=== PATIENT | male | born 1980 | race Hispanic/Latino ===

== ENCOUNTER 2023-10-02 09:33 | Emergency (ER) | payer SELFPAY ==
[2023-10-02 09:58] LABS: Absolute Lymphocytes (CBC) 2.4 K/uL (0.7-4.9); Hematocrit 44.3 % (39.6-49.0); Lymphocytes % 29.9 % (15.3-44.8); MCV 90.8 fL (80-100); MPV 7.9 fL (7.6-11.3); Platelets 233 thou/uL (152-406); RBC Red Blood Cell Count 4.87 M/uL (4.33-5.43)
[2023-10-02 10:15] LABS: Albumin 3.3 g/dL (3.4-5.0); Bilirubin Total 0.2 mg/dL (0.2-1.0); Potassium 3.8 mEq/L (3.5-5.1); Protein, Total 7.1 g/dL (6.4-8.2)
--- NOTE | 2023-10-02 11:06 | RAD REPORT ---
EXAM DESCRIPTION: CTAbdomen Pelvis W Contrast - 10/02/2023 10:56 am CLINICAL HISTORY: right side;Abd pain COMPARISON: No comparisons TECHNIQUE: CT of the abdomen and pelvis was performed. All CT scans are performed using dose optimization technique as appropriate and may include automated exposure control or mA/KV adjustment according to patient size. FINDINGS: Lower chest: No acute abnormality. Liver: Hepatomegaly with steatosis . Biliary: No biliary ductal dilatation. Stomach: No significant focal abnormality. Duodenum: No significant focal abnormality. Pancreas: No significant abnormality. Spleen: No significant abnormality. Adrenal: No suspicious lesions. Kidney/ureter: No hydronephrosis. No renal calculi. Retroperitoneum: No retroperitoneal adenopathy. Vascular: No aneurysm. Bowel: No significant focal abnormality. Normal appendix . Peritoneum: No ascites or free air. Small fat containing inguinal hernias, right greater than left. Bladder: Grossly unremarkable. Reproductive: No adnexal masses. Bones: No acute fracture. Other: n/a IMPRESSION: No acute intra-abdominal or pelvic finding. Normal appendix. No urinary tract calculi.
--- NOTE | 2023-10-02 11:08 | EDPHYS ---
Physician Documentation [facility] Name: Simone Rivera Age: 43 yrs Sex: Male : 1980 Arrival Date: 10/02/2023 Time: 09:33 Bed 16 Private MD: ED Physician Juan Cuellar HPI: 10/02 09:46 This 43 yrs old Male presents to ER via Ambulatory with complaints of rn Abdominal Pain. 09:46 The patient presents with abdominal pain right lower quadrant. Onset: The rn symptoms/episode began/occurred this morning. The symptoms do not radiate. Associated signs and symptoms: Pertinent negatives: nausea and vomiting, blood in stools, chest pain, constipation, diarrhea, dysuria, fever, hematuria, shortness of breath, testicular pain, vomiting, vomiting blood. The symptoms are described as crampy. Modifying factors: The symptoms are alleviated by remaining still, the symptoms are aggravated by movement. Severity of pain: At its worst the pain was mild in the emergency department the pain is unchanged. The patient has not experienced similar symptoms in the past. Patient reports earlier today sneezed followed by a cough with immediate right-sided abdominal wall pain. Does not take blood thinners. No fever/vomiting/diarrhea. No blood in stools. No history of kidney stones. Worse with movement and twisting of the abdominal wall.. Historical: - Allergies: 09:46 No Known Allergies; iw - Home Meds: 09:46 None [Active]; iw - PMHx: 09:46 None; iw - Immunization history:: Client reports having NOT received the Covid vaccine. - Social history:: Smoking status: Patient reports the use of cigarette tobacco products. - Family history:: not pertinent. - Hospitalizations: : No recent hospitalization is reported. ROS: 09:46 Constitutional: Negative for fever, chills, and weight loss, Cardiovascular: Negative rn for chest pain, palpitations, and edema, Respiratory: Negative for shortness of breath, cough, wheezing, and pleuritic chest pain, Abdomen/GI: Positive for abdominal pain Back: Negative for injury and pain, : Negative for injury, bleeding, discharge, and swelling, MS/Extremity: Negative for injury and deformity, Skin: Negative for injury, rash, and discoloration, Neuro: Negative for headache, weakness, numbness, tingling, and seizure, Exam: 09:46 Constitutional: This is a well developed, well nourished patient who is awake, alert, rn and in no acute distress. Ambulatory to room without difficulty or assistance Head/Face: Normocephalic, atraumatic. Cardiovascular: Tachycardic, regular. No pulse deficits. Respiratory: No increased work of breathing, no retractions or nasal flaring. Abdomen/GI: Soft, mild right lower quadrant abdominal wall tenderness. No peritoneal signs or masses. No tenderness or rebound elsewhere to the abdomen Skin: Warm, dry MS/ Extremity: Pulses equal, no cyanosis. Neuro: Awake and alert, GCS 15 Vital Signs: 09:44 Pulse 95; Resp 16; Temp 98.1; Pulse Ox 98% on R/A; iw 09:46 BP 142 / 86; Pulse 102; Resp 18; Temp 98.1; Pulse Ox 100% on R/A; Weight 104.33 kg; iw Height 5 ft. 9 in. ; Pain 8/10; 09:46 Body Mass Index 33.96 (104.33 kg, 175.26 cm) iw 09:46 Pain Scale: Adult iw MDM: 09:38 Patient medically screened. rn 11:07 Differential diagnosis: appendicitis, non-specific abd pain, Abdominal wall strain, rn hernia. Data reviewed: vital signs, nurses notes, lab test result(s), radiologic studies, CT scan, and as a result, I will discharge patient. Counseling: I had a detailed discussion with the patient and/or guardian regarding the historical points, exam findings, and any diagnostic results supporting the discharge/admit diagnosis, lab results, radiology results, the need for outpatient follow up, to return to the emergency department if symptoms worsen or persist or if there are any questions or concerns that arise at home. Special discussion: Based on the patient's Hx, exam, and Dx evaluation, there is no indication for emergent surgery or inpatient Tx. It is understood by the patient/guardian that if the Sx's persist or worsen they need to return immediately for re-evaluation. I discussed with the patient/guardian in detail that at this point there is no indication for admission to the hospital. It is understood, however, that if the symptoms persist or worsen the patient needs to return immediately for re-evaluation. ED course: No acute findings and CT of the abdomen. Most likely abdominal wall strain following sneeze and cough. Will DC home with return precautions. I have personally reviewed all of the results, including but not limited to blood tests and imaging deemed necessary to safely discharge this patient at this time. All results given to and printed out for patient. I personally went over all the results with the patient and answered all questions. Patient will follow-up with PCP and or specialist as discussed. Return precautions given and understood.. 10/02 09:45 Order name: CBC with Diff; Complete Time: 10: rn 10/02 09:45 Order name: CMP; Complete Time: : rn 10/02 09:45 Order name: Lipase; Complete Time: : rn 10/02 09:45 Order name: CT Abd/Pelvis - IV Contrast Only; Complete Time: : rn 10/02 09:45 Order name: IV Saline Lock; Complete Time: 09:54 rn 10/02 09:45 Order name: Labs collected and sent; Complete Time: 09:54 rn Administered Medications: No medications were administered Disposition Summary: 10/02/23 11:08 Discharge Ordered Notes: Location: Home rn Problem: new rn Symptoms: have improved rn Condition: Stable rn Diagnosis - Strain of muscle, fascia and tendon of abdomen rn Followup: rn - With: Private Physician - When: As needed - Reason: Recheck today's complaints, Re-evaluation by your physician Discharge Instructions: - Discharge Summary Sheet rn - Abdominal Pain, Adult rn - Muscle Strain rn Forms: - Medication Reconciliation Form rn - Thank You Letter rn - Antibiotic manager furniture - Prescription Opioid Use rn - Patient Portal Instructions rn - Leadership Thank You Letter rn Signatures: Dispatcher [employer] Chelsea Watts RN RN Juan Harden MD MD rn
--- NOTE | 2023-10-02 11:08 | ER ---
Nurse's Notes [facility] Name: Simone Rivera Age: 43 yrs Sex: Male : 1980 Arrival Date: 10/02/2023 Time: 09:33 Bed 16 Private MD: Diagnosis: Strain of muscle, fascia and tendon of abdomen Presentation: 10/02 09:44 Chief complaint: Patient states: right sided abs pain since today after sneezing , iw cough. Coronavirus screen: At this time, the client does not indicate any symptoms associated with coronavirus-19. Ebola Screen: Patient negative for fever greater than or equal to 101.5 degrees Fahrenheit, and additional compatible Ebola Virus Disease symptoms Patient denies exposure to infectious person. Patient denies travel to an Ebola-affected area in the 21 days before illness onset. No symptoms or risks identified at this time. Initial Sepsis Screen: Does the patient meet any 2 criteria? No. Patient's initial sepsis screen is negative. Does the patient have a suspected source of infection? No. Patient's initial sepsis screen is negative. Risk Assessment: Do you want to hurt yourself or someone else? Patient reports no desire to harm self or others. Onset of symptoms was October 02, 2023. 09:44 Method Of Arrival: Ambulatory iw 09:44 Acuity: THIAGO 3 iw Historical: - Allergies: 09:46 No Known Allergies; iw - Home Meds: 09:46 None [Active]; iw - PMHx: 09:46 None; iw - Immunization history:: Client reports having NOT received the Covid vaccine. - Social history:: Smoking status: Patient reports the use of cigarette tobacco products. - Family history:: not pertinent. - Hospitalizations: : No recent hospitalization is reported. Screenin:19 [facility] ED Fall Risk Assessment (Adult) Score/Fall Risk Level 0 - 2 = Low Risk. Abuse iw screen: Denies threats or abuse. Denies injuries from another. Nutritional screening: No deficits noted. Tuberculosis screening: No symptoms or risk factors identified. Assessment: 09:45 General: Appears in no apparent distress. Behavior is calm, cooperative. Pain: iw Complains of pain in right upper quadrant and right lower quadrant. Neuro: Level of Consciousness is awake, alert, obeys commands, Oriented to person, place, time, situation, Moves all extremities. Full function. Respiratory: Respiratory effort is even, unlabored, Respiratory pattern is regular, symmetrical. GI: Bowel sounds present X 4 quads. Abd is soft X 4 quads. Vital Signs: 09:44 Pulse 95; Resp 16; Temp 98.1; Pulse Ox 98% on R/A; iw 09:46 BP 142 / 86; Pulse 102; Resp 18; Temp 98.1; Pulse Ox 100% on R/A; Weight 104.33 kg; iw Height 5 ft. 9 in. ; Pain 8/10; 09:46 Body Mass Index 33.96 (104.33 kg, 175.26 cm) iw 09:46 Pain Scale: Adult iw ED Course: 09:36 Patient arrived in ED. rg4 09:38 Juan Cuellar MD is Attending Physician. rn 09:45 Triage completed. iw 09:50 Patient has correct armband on for positive identification. Provided Education on: . iw 09:53 Initial lab(s) drawn, by me, sent to lab. Inserted saline lock: 20 gauge in left iw antecubital area, using aseptic technique. Blood collected. 10:45 Chelsea Monique, RN is Primary Nurse. iw 10:58 CT Abd/Pelvis - IV Contrast Only In Process Unspecified. EDMS 11:00 Arm band placed on. iw 11:19 No provider procedures requiring assistance completed. Patient did not have IV access iw during this emergency room visit. Administered Medications: No medications were administered Medication: 10:00 VIS not applicable for this client. iw Outcome: 11:08 Discharge ordered by . rn 11:19 Discharged to home ambulatory, iw 11:19 Condition: good 11:19 Discharge instructions given to patient, Instructed on discharge instructions, follow up and referral plans. Demonstrated understanding of instructions, follow-up care, 11:20 Patient left the ED. iw Signatures: Dispatcher [employer] EDChelsea Ley, Juan Jay RN, MD MD rn Garcia, Rubi rg4
[2023-10-02 11:26] VITALS: TEMP 98.1
[2023-10-02 11:28] VITALS: BP 142/86; O2SAT 100
== END 2023-10-02 11:20 | disposition home or self-care (01) ==
LOC: ER 09:33
DX: S39.011A Strain of muscle, fascia and tendon of abdomen, initial encounter (principal); Z72.0 Tobacco use
CPT/HCPCS: 36415; 74177; 80053; 83690; 85025; 99283; Q9967